=== PATIENT | female | born 1960 | race African-American/Black ===

== ENCOUNTER 2022-03-22 18:53 | Inpatient (IN) | payer MEDICAID ==
[~2022-03-22] VITALS: Ht 170.2 cm; Wt 87.6 kg
[2022-03-22] MEDS ORDERED: SODIUM CHLORIDE 0.9% 2,500 ML IV ONE (19:45)
[2022-03-22 19:55] LABS: Albumin 2.6 g/dL (3.4-5.0); Calcium 9.7 mg/dL (8.5-10.1); Hematocrit 43.5 % (36.0-46.0); Hemoglobin 12.6 g/dL (12.2-16.2); Mean Corpuscular Hemoglobin 32.9 pg (28.0-32.0); Mean Corpuscular Hgb Conc. 28.9 g/dL (32.0-36.0); Mean Corpuscular Volume 113.9 fL (80.0-100.0); Potassium 3.6 mmol/L (3.5-5.1); Red Blood Cells 3.82 10^6/uL (4.0-5.20); Red Cell Distribution Width 19.8 % (11.8-14.3); White Blood Cell 22.4 10^3/uL (4.4-10.8)
[2022-03-22 19:58] LABS: BUN/Creatinine Ratio 2.5; Band Neutrophils % (manual) 0; Basophils % (manual) 0 (0.0-2.0); Bilirubin, Total 2.6 mg/dL (0.2-1.0); Blast Cells 0; Eosinophils % (manual) 0 (0-7); Metamyelocytes % 0; Myelocytes % 0; Promyelocytes % 0; Reactive Lymphocytes 0; Total Protein 8.7 g/dL (6.4-8.2)
[2022-03-22] MEDS: PIPERACILLIN-TAZO 4.5GM 100 ML IV SCH (20:40)
[2022-03-22 20:51] LABS: Urine Bacteria NONE SEEN /hpf (None Seen); Urine Blood 1+ /uL (Negative); Urine Hyaline Cast FEW /lpf (0 - 2); Urine Mucus FEW (None Seen); Urine Specific Gravity 1.014 (1.001-1.035); Urine WBC 1 /hpf (0 - 5)
[2022-03-22 21:05] LABS: Lactic Acid w/Reflex 26.7 mmol/L (0.4-2.0)
[2022-03-22] MEDS ORDERED: DEXTROSE 50% SYRINGE 50 ML IV ONE (21:10)
[2022-03-22 21:17] LABS: Lymphocytes % (manual) 10 (10.0-50.0); Monocytes % (manual) 6 (0-12)
[2022-03-22] MEDS ORDERED: IOHEXOL 300 MG/ML 100ML BOTTLE IJ ONE (21:18)
[2022-03-22] MEDS ORDERED: ONDANSETRON HCL 4 MG/2 ML VIAL IV ONE (21:30)
[2022-03-22] MEDS ORDERED: DEXTROSE (50%) 50ML SYRG IV ONE (21:30)
[2022-03-22] MEDS ORDERED: D5W/LACTATED RINGERS 1,000 ML IV ONE (21:30)
[2022-03-22] MEDS ORDERED: VANCOMYCIN 1GM/250ML 250 ML IV SCH (22:00)
[2022-03-22] MEDS ORDERED: METOCLOPRAMIDE HCL 5MG/ml INJ 2ml VIAL IV ONE (23:00)
[2022-03-22 23:18] LABS: Lactic Acid w/Reflex 22.5 mmol/L (0.4-2.0)
[2022-03-22] MEDS ORDERED: DEXTROSE (50%) 50ML SYRG IV PRN (23:45)
[2022-03-22] MEDS ORDERED: INSULIN LANTUS (GLARGINE) 1 /0.01ml (100units/ml) SC ONE (23:45)
[2022-03-22] MEDS ORDERED: SODIUM CHLORIDE 0.9% 1,000 ML IV ONE (23:45)
[2022-03-22] MEDS ORDERED: InsuLIN R (HUMAN) 100 UNITS in SODIUM CHL 0.9% 99 ML IV SCH (23:45)
[2022-03-23] VITALS (32 sets, daily range): BP systolic 120–157; BP diastolic 63–86
[2022-03-23] MEDS ORDERED: ACCU-CHEK COMFORT CURVE STRIP VI SCH
[2022-03-23 00:18] LABS: Albumin 2.1 g/dL (3.4-5.0); Calcium 8.1 mg/dL (8.5-10.1); Potassium 3.4 mmol/L (3.5-5.1)
[2022-03-23 00:20] LABS: Total Protein 6.5 g/dL (6.4-8.2)
[2022-03-23 00:27] LABS: Bilirubin, Total 2.5 mg/dL (0.2-1.0)
[2022-03-23 00:40] LABS: BUN/Creatinine Ratio 2.5
[2022-03-23] MEDS ORDERED: DEXTROSE (50%) 50ML SYRG IV PRN (01:00)
[2022-03-23] MEDS ORDERED: MORPHINE SULFATE INJ 2 MG/ml SYRG IV PRN (01:00)
[2022-03-23] MEDS ORDERED: SODIUM BICARBONATE 50ML VIAL 100 ML in SOD CHL 0.45% 1,000 ML IV SCH (01:00)
[2022-03-23] MEDS ORDERED: VANCOMYCIN PER PHARMACY 0 MG IV SCH (01:00)
[2022-03-23] MEDS ORDERED: SODIUM BICARBONATE 50ML VIAL 150 ML in D5W 5% 1,000 ML IV SCH ×2 (01:00→10:30)
[2022-03-23] MEDS ORDERED: InsuLIN R (HUMAN) 100 UNITS in SODIUM CHL 0.9% 99 ML IV SCH ×2 (01:00→06:45)
[2022-03-23] MEDS ORDERED: SODIUM BICARBONATE 8.4 % INJ 50ML VIAL IV ONE ×2 (01:15→02:52)
[2022-03-23 01:50] LABS: Hemoglobin 10.6 g/dL (12.2-16.2)
[2022-03-23 01:52] LABS: Hematocrit 34.4 % (36.0-46.0); Mean Corpuscular Hemoglobin 33.8 pg (28.0-32.0); Mean Corpuscular Hgb Conc. 30.8 g/dL (32.0-36.0); Mean Corpuscular Volume 109.9 fL (80.0-100.0); Red Blood Cells 3.13 10^6/uL (4.0-5.20); Red Cell Distribution Width 19.6 % (11.8-14.3); White Blood Cell 25.3 10^3/uL (4.4-10.8)
[2022-03-23 01:59] LABS: Basophils % (manual) 0 (0.0-2.0); Blast Cells 0; Eosinophils % (manual) 0 (0-7); Metamyelocytes % 0; Myelocytes % 0; Promyelocytes % 0; Reactive Lymphocytes 0
[2022-03-23 02:11] LABS: Albumin 2.3 g/dL (3.4-5.0); BUN/Creatinine Ratio 3.3; Calcium 8.5 mg/dL (8.5-10.1); Magnesium 1.8 mg/dL (1.6-2.6); Potassium 3.4 mmol/L (3.5-5.1)
[2022-03-23 02:14] LABS: Bilirubin, Total 2.6 mg/dL (0.2-1.0); Phosphorus 4.7 mg/dL (2.5-4.90)
[2022-03-23 02:16] LABS: Anion Gap 32 (5-15); BUN/Creatinine Ratio 2.4; Blood Urea Nitrogen 3 mg/dL (7-18); Calcium 8.6 mg/dL (8.5-10.1); Chloride 111 mmol/L (98-107); GFR African American 55 mL/min; GFR Non-African American 46 mL/min; Glucose 221 mg/dL (74-106); Potassium 3.8 mmol/L (3.5-5.1); Sodium 145 mmol/L (136-145)
[2022-03-23 02:19] LABS: Carbon Dioxide 2 mmol/L (21-32)
[2022-03-23] MEDS: ACCU-CHEK COMFORT CURVE STRIP VI SCH ×11 (02:20→18:03)
[2022-03-23 02:28] LABS: Band Neutrophils % (manual) 9; Lymphocytes % (manual) 11 (10.0-50.0); Monocytes % (manual) 4 (0-12)
[2022-03-23] MEDS: POTASSIUM CHL 20MEQ/100ML 100 ML IV SCH ×2 (02:28→04:31)
[2022-03-23] MEDS: PIPERACILLIN-TAZOB 3.375GM 100 ML IV SCH ×3 (02:35→18:15)
[2022-03-23] MEDS ORDERED: InsuLIN REG 1unit/0.01ml Soln (100units/ml) ONE (03:04)
[2022-03-23] MEDS: PIPERACILLIN-TAZO 4.5GM 100 ML IV SCH ×3 (04:08→04:31)
[2022-03-23] MEDS: ONDANSETRON HCL 4 MG/2 ML VIAL IV PRN ×3 (04:41→21:31)
[2022-03-23] MEDS ORDERED: SODIUM CHLORIDE 0.9% 1,000 ML IV ONE (06:00)
[2022-03-23 06:33] LABS: Albumin 2.1 g/dL (3.4-5.0); Calcium 7.7 mg/dL (8.5-10.1); Magnesium 1.5 mg/dL (1.6-2.6); Potassium 4.3 mmol/L (3.5-5.1)
[2022-03-23 06:36] LABS: BUN/Creatinine Ratio 2.2; Bilirubin, Total 2.7 mg/dL (0.2-1.0); Phosphorus 1.5 mg/dL (2.5-4.90); Total Protein 6.6 g/dL (6.4-8.2)
[2022-03-23 06:58] LABS: Eosinophils # (auto) 0 10 ^3/uL (0-0.8)
[2022-03-23 07:00] LABS: Basophils # (auto) 0 10 ^3/uL (0-0.2); Basophils % (auto) 0.1 % (0.0-2.0); Eosinophils % (auto) 0.1 % (0.0-7.0); Hematocrit 31.1 % (36.0-46.0); Lymphocytes # (auto) 2.6 10 ^3/uL (0.4-5.4); Lymphocytes % (auto) 12.2 % (10.0-50.0); Mean Corpuscular Hemoglobin 33.5 pg (28.0-32.0); Mean Corpuscular Volume 104.8 fL (80.0-100.0); Monocytes # (auto) 1.1 10 ^3/uL (0-1.3); Monocytes % (auto) 5.3 % (0.0-12.0); Neutrophils # (auto) 17.4 10 ^3/uL (1.6-8.6); Neutrophils % (auto) 82.3 % (37.0-80.0); Red Blood Cells 2.97 10^6/uL (4.0-5.20); Red Cell Distribution Width 18.6 % (11.8-14.3); White Blood Cell 21.2 10^3/uL (4.4-10.8)
[2022-03-23] MEDS ORDERED: D5W/SOD CHL 0.45% 1,000 ML IV SCH (07:45)
[2022-03-23] MEDS ORDERED: chlordiazePOXIDE HCL 25 MG CAP PO PRN (08:15)
[2022-03-23] MEDS ORDERED: LORazepam 2MG/ML-1ML VIAL IV PRN (08:15)
[2022-03-23] MEDS ORDERED: INSULIN LANTUS (GLARGINE) 1 /0.01ml (100units/ml) SC SCH (10:00)
[2022-03-23 10:12] LABS: Calcium 8.2 mg/dL (8.5-10.1); Magnesium 1.7 mg/dL (1.6-2.6); Potassium 3.7 mmol/L (3.5-5.1)
[2022-03-23 10:15] LABS: BUN/Creatinine Ratio 2.2; Bilirubin, Total 2.8 mg/dL (0.2-1.0); Total Protein 6.8 g/dL (6.4-8.2)
[2022-03-23] MEDS ORDERED: POTASSIUM PHOSPHATE 26.4 MEQ in SODIUM CHL 0.9% 100 ML IV ONE (10:30)
[2022-03-23 10:59] LABS: Phosphorus 0.7 mg/dL (2.5-4.90)
[2022-03-23] MEDS ORDERED: SODIUM PHOSPHATES 40 MEQ in D5W 5% 250 ML IV ONE (11:00)
[2022-03-23] MEDS ORDERED: D5W 5% IV SCH ×2 (12:15→12:30)
[2022-03-23] MEDS ORDERED: SODIUM BICARBONATE IV SCH ×2 (12:15→12:30)
[2022-03-23] MEDS ORDERED: POTASSIUM CHLORIDE IV SCH ×2 (12:15→12:30)
[2022-03-23] MEDS ORDERED: POTASSIUM PHOSPHATE 44 MEQ in D5W 5% 250 ML IV ONE (12:30)
[2022-03-23] MEDS: FOLIC ACID 1 MG, MULTIPLE VITAMIN 10 ML, MAGNESIUM SULF SDV 50% 8 MEQ, THIAMINE INJ 100... INJ SCH ×5 (12:35)
[2022-03-23] MEDS: SODIUM BICARBONATE 50ML VIAL 150 ML in D5W 5% 1,000 ML IV SCH ×2 (13:18→21:57)
[2022-03-23] MEDS: MAGNESIUM SULFATE 1GM/100ML 100 ML IV SCH ×2 (13:32→15:11)
[2022-03-23 14:51] LABS: Albumin 2.1 g/dL (3.4-5.0); Calcium 8.1 mg/dL (8.5-10.1); Magnesium 1.8 mg/dL (1.6-2.6); Potassium 3.4 mmol/L (3.5-5.1)
[2022-03-23 14:54] LABS: BUN/Creatinine Ratio 2.5; Bilirubin, Total 2.9 mg/dL (0.2-1.0); Total Protein 6.9 g/dL (6.4-8.2)
[2022-03-23] MEDS: VANCOMYCIN 1GM/250ML 250 ML IV SCH (15:09)
[2022-03-23 15:10] LABS: Phosphorus 0.6 mg/dL (2.5-4.90)
[2022-03-23 18:19] LABS: Albumin 2.2 g/dL (3.4-5.0); BUN/Creatinine Ratio 2.8; Magnesium 2.6 mg/dL (1.6-2.6); Potassium 3.2 mmol/L (3.5-5.1)
[2022-03-23 18:22] LABS: Bilirubin, Total 3.1 mg/dL (0.2-1.0); Total Protein 6.9 g/dL (6.4-8.2)
[2022-03-23 18:29] LABS: Phosphorus 0.6 mg/dL (2.5-4.90)
[2022-03-23] MEDS: HYDROmorphone HCL 2 MG/ML VL/or syr IV PRN (21:32)
[2022-03-23] MEDS: PANTOPRAZOLE 40 MG/10 ML VIAL INJ IV SCH (21:33)
[2022-03-23] MEDS: SODIUM BICARBONATE IV SCH (22:40)
[2022-03-23] MEDS: POTASSIUM CHLORIDE IV SCH (22:40)
[2022-03-23] MEDS: D5W 5% IV SCH (22:40)
[2022-03-24] VITALS (22 sets, daily range): BP systolic 115–141; BP diastolic 62–94
[2022-03-24 01:20] LABS: Albumin 2.1 g/dL (3.4-5.0); BUN/Creatinine Ratio 3.8; Calcium 7.8 mg/dL (8.5-10.1); Magnesium 2.4 mg/dL (1.6-2.6); Potassium 3.3 mmol/L (3.5-5.1)
[2022-03-24 01:23] LABS: Bilirubin, Total 3.2 mg/dL (0.2-1.0); Phosphorus 1.9 mg/dL (2.5-4.90); Total Protein 6.2 g/dL (6.4-8.2)
[2022-03-24] MEDS: PIPERACILLIN-TAZOB 3.375GM 100 ML IV SCH ×3 (02:00→17:47)
[2022-03-24 06:10] LABS: Albumin 2.1 g/dL (3.4-5.0); Calcium 7.7 mg/dL (8.5-10.1); Magnesium 2.3 mg/dL (1.6-2.6); Potassium 3.3 mmol/L (3.5-5.1)
[2022-03-24 06:13] LABS: BUN/Creatinine Ratio 4.8; Bilirubin, Total 3.4 mg/dL (0.2-1.0); Phosphorus 1.7 mg/dL (2.5-4.90); Total Protein 7.2 g/dL (6.4-8.2)
[2022-03-24] MEDS: D5W 5% IV SCH (06:24)
[2022-03-24] MEDS: SODIUM BICARBONATE IV SCH (06:24)
[2022-03-24] MEDS: POTASSIUM CHLORIDE IV SCH (06:24)
[2022-03-24] MEDS: ACCU-CHEK COMFORT CURVE STRIP VI SCH ×5 (06:27→23:39)
[2022-03-24] MEDS ORDERED: SODIUM PHOSPHATES 20 MEQ in SODIUM CHL 0.9% 100 ML IV ONE (08:30)
[2022-03-24] MEDS: PANTOPRAZOLE 40 MG/10 ML VIAL INJ IV SCH ×2 (10:00→21:53)
[2022-03-24 10:40] LABS: Calcium 7.9 mg/dL (8.5-10.1); Magnesium 2.5 mg/dL (1.6-2.6); Potassium 3.2 mmol/L (3.5-5.1)
[2022-03-24 10:43] LABS: Albumin 2.2 g/dL (3.4-5.0); BUN/Creatinine Ratio 3.8
[2022-03-24 10:45] LABS: Bilirubin, Total 3.7 mg/dL (0.2-1.0); Phosphorus 1.6 mg/dL (2.5-4.90); Total Protein 6.7 g/dL (6.4-8.2)
[2022-03-24] MEDS: SOD CHL 0.45% 1,000 ML IV SCH (11:15)
[2022-03-24] MEDS: FOLIC ACID 1 MG, MULTIPLE VITAMIN 10 ML, MAGNESIUM SULF SDV 50% 8 MEQ, THIAMINE INJ 100... INJ SCH ×5 (12:21)
[2022-03-24] MEDS: ONDANSETRON HCL 4 MG/2 ML VIAL IV PRN (12:43)
[2022-03-24] MEDS: HYDROmorphone HCL 2 MG/ML VL/or syr IV PRN ×3 (12:43→21:52)
[2022-03-24] MEDS: VANCOMYCIN 1GM/250ML 250 ML IV SCH (15:07)
[2022-03-24 16:48] LABS: Albumin 1.9 g/dL (3.4-5.0); Calcium 7.2 mg/dL (8.5-10.1); Magnesium 2.3 mg/dL (1.6-2.6)
[2022-03-24 16:51] LABS: BUN/Creatinine Ratio 3.9; Bilirubin, Total 3.3 mg/dL (0.2-1.0); Phosphorus 2.5 mg/dL (2.5-4.90); Total Protein 5.8 g/dL (6.4-8.2)
[2022-03-24 16:57] LABS: Potassium 2.8 mmol/L (3.5-5.1)
[2022-03-24] MEDS ORDERED: POTASSIUM CHL 20MEQ/100ML 100 ML IV ONE (17:35)
[2022-03-24] MEDS: POTASSIUM CHL 20MEQ/100ML 100 ML IV SCH ×2 (17:37→18:36)
[2022-03-25] VITALS (16 sets, daily range): BP systolic 105–152; BP diastolic 61–92
[2022-03-25] MEDS: PIPERACILLIN-TAZOB 3.375GM 100 ML IV SCH (02:45)
[2022-03-25] MEDS: ACCU-CHEK COMFORT CURVE STRIP VI SCH ×3 (06:01→18:51)
[2022-03-25] MEDS: SOD CHL 0.45% 1,000 ML IV SCH (07:15)
[2022-03-25 07:26] LABS: Basophils # (auto) 0 10 ^3/uL (0-0.2); Basophils % (auto) 0.4 % (0.0-2.0); Eosinophils # (auto) 0 10 ^3/uL (0-0.8); Hemoglobin 11.1 g/dL (12.2-16.2); Lymphocytes # (auto) 1.8 10 ^3/uL (0.4-5.4)
[2022-03-25 07:29] LABS: Eosinophils % (auto) 0.4 % (0.0-7.0); Lymphocytes % (auto) 27.2 % (10.0-50.0); Mean Corpuscular Hemoglobin 34.3 pg (28.0-32.0); Mean Corpuscular Hgb Conc. 33.5 g/dL (32.0-36.0); Mean Corpuscular Volume 102.2 fL (80.0-100.0); Monocytes # (auto) 0.5 10 ^3/uL (0-1.3); Monocytes % (auto) 8.1 % (0.0-12.0); Neutrophils # (auto) 4.3 10 ^3/uL (1.6-8.6); Neutrophils % (auto) 63.9 % (37.0-80.0); Nucleated Red Blood Cells % 0.3 %; Red Blood Cells 3.23 10^6/uL (4.0-5.20); Red Cell Distribution Width 17.9 % (11.8-14.3); White Blood Cell 6.7 10^3/uL (4.4-10.8)
[2022-03-25] MEDS: HYDROmorphone HCL 2 MG/ML VL/or syr IV PRN ×2 (09:56→17:56)
[2022-03-25 10:12] LABS: Albumin 2.1 g/dL (3.4-5.0); Calcium 7.6 mg/dL (8.5-10.1); Potassium 3.2 mmol/L (3.5-5.1)
[2022-03-25 10:15] LABS: BUN/Creatinine Ratio 4.2; Total Protein 6.2 g/dL (6.4-8.2)
[2022-03-25] MEDS ORDERED: POTASSIUM EFFERVESENT TAB 25 MEQ PO ONE (11:15)
[2022-03-25] MEDS: ONDANSETRON HCL 4 MG/2 ML VIAL IV PRN (12:52)
[2022-03-25] MEDS: FOLIC ACID 1 MG, MULTIPLE VITAMIN 10 ML, MAGNESIUM SULF SDV 50% 8 MEQ, THIAMINE INJ 100... INJ SCH ×5 (13:09)
[2022-03-25 23:25] LABS: Urine Bacteria NONE SEEN /hpf (None Seen); Urine Blood 3+ /uL (Negative); Urine Hyaline Cast FEW /lpf (0 - 2); Urine Mucus FEW (None Seen); Urine Specific Gravity 1.035 (1.001-1.035); Urine WBC 29 /hpf (0 - 5)
[2022-03-25 23:34] LABS: Alcohol, Urine < 3.0 mg/dL (0-10); Amphetamine Screen, Urine NEGATIVE (NEGATIVE); Barbiturate Scree,Urine NEGATIVE (NEGATIVE); Benzodiazephine Screen, Urine NEGATIVE (NEGATIVE); Cannabinoid Screen, Urine NEGATIVE (NEGATIVE); Cocaine Screen, Urine NEGATIVE (NEGATIVE); Opiate Scree,Urine POSITIVE (NEGATIVE); Phencyclidine Screen, Urine NEGATIVE (NEGATIVE)
[2022-03-25 23:38] LABS: Sodium Urine 67 mmol/L (40-220)
[2022-03-25 23:46] LABS: Creatinine, Urine 282 mg/dL (30.0-125.0)
[2022-03-26] VITALS (13 sets, daily range): BP systolic 112–139; BP diastolic 58–75
[2022-03-26] MEDS: SOD CHL 0.45% 1,000 ML IV SCH ×2 (05:00→23:15)
[2022-03-26 05:15] LABS: Basophils # (auto) 0 10 ^3/uL (0-0.2); Basophils % (auto) 0.4 % (0.0-2.0); Eosinophils % (auto) 0.9 % (0.0-7.0); Mean Corpuscular Volume 100.1 fL (80.0-100.0); Neutrophils # (auto) 2.7 10 ^3/uL (1.6-8.6); Red Cell Distribution Width 17.5 % (11.8-14.3); White Blood Cell 5.6 10^3/uL (4.4-10.8)
[2022-03-26 05:19] LABS: Eosinophils # (auto) 0.1 10 ^3/uL (0-0.8); Hemoglobin 8.9 g/dL (12.2-16.2); Lymphocytes # (auto) 2.2 10 ^3/uL (0.4-5.4); Lymphocytes % (auto) 40.4 % (10.0-50.0); Mean Corpuscular Hemoglobin 33.2 pg (28.0-32.0); Mean Corpuscular Hgb Conc. 33.2 g/dL (32.0-36.0); Monocytes # (auto) 0.6 10 ^3/uL (0-1.3); Neutrophils % (auto) 48.3 % (37.0-80.0); Nucleated Red Blood Cells % 0.3 %
[2022-03-26 05:28] LABS: Potassium 3.3 mmol/L (3.5-5.1)
[2022-03-26 05:37] LABS: Albumin 1.9 g/dL (3.4-5.0); BUN/Creatinine Ratio 6.3; Bilirubin, Total 3.8 mg/dL (0.2-1.0); Calcium 7.7 mg/dL (8.5-10.1); Magnesium 2.4 mg/dL (1.6-2.6); Phosphorus 1.7 mg/dL (2.5-4.90); Total Protein 5.9 g/dL (6.4-8.2)
[2022-03-26] MEDS: ACCU-CHEK COMFORT CURVE STRIP VI SCH ×4 (06:24→18:22)
[2022-03-26] MEDS ORDERED: POTASSIUM PHOSPHATE 22 MEQ in SODIUM CHL 0.9% 100 ML IV ONE (08:00)
[2022-03-26] MEDS: ONDANSETRON HCL 4 MG/2 ML VIAL IV PRN (08:25)
[2022-03-26] MEDS: PANTOPRAZOLE 40 MG TAB PO SCH (10:27)
[2022-03-26] MEDS: METOPROLOL TARTRATE 25 MG TAB PO SCH ×2 (10:44→22:30)
[2022-03-26] MEDS: FOLIC ACID 1 MG, MULTIPLE VITAMIN 10 ML, MAGNESIUM SULF SDV 50% 8 MEQ, THIAMINE INJ 100... INJ SCH ×5 (12:13)
[2022-03-26] MEDS: cefTRIAXone 1GM/50ML D5W 50 ML IV SCH (12:19)
[2022-03-27] MEDS: ACCU-CHEK COMFORT CURVE STRIP VI SCH ×5 (05:57→23:06)
[2022-03-27 08:00] VITALS: BP 127/74
[2022-03-27] MEDS: cefTRIAXone 1GM/50ML D5W 50 ML IV SCH (08:28)
[2022-03-27] MEDS: ONDANSETRON HCL 4 MG/2 ML VIAL IV PRN ×2 (08:29→22:13)
[2022-03-27] MEDS: METOPROLOL TARTRATE 25 MG TAB PO SCH ×2 (08:30→22:13)
[2022-03-27] MEDS: PANTOPRAZOLE 40 MG TAB PO SCH (08:55)
[2022-03-27 11:50] LABS: Basophils # (auto) 0.1 10 ^3/uL (0-0.2); Basophils % (auto) 1.3 % (0.0-2.0); Eosinophils # (auto) 0.1 10 ^3/uL (0-0.8); Eosinophils % (auto) 1.3 % (0.0-7.0); Lymphocytes # (auto) 1.7 10 ^3/uL (0.4-5.4)
[2022-03-27 11:53] LABS: Hematocrit 30.6 % (36.0-46.0); Hemoglobin 10.2 g/dL (12.2-16.2); Lymphocytes % (auto) 29.4 % (10.0-50.0); Mean Corpuscular Hemoglobin 33.7 pg (28.0-32.0); Mean Corpuscular Hgb Conc. 33.4 g/dL (32.0-36.0); Mean Corpuscular Volume 100.9 fL (80.0-100.0); Monocytes % (auto) 17.1 % (0.0-12.0); Neutrophils # (auto) 2.9 10 ^3/uL (1.6-8.6); Neutrophils % (auto) 50.9 % (37.0-80.0); Nucleated Red Blood Cells % 0.8 %; Red Blood Cells 3.04 10^6/uL (4.0-5.20); Red Cell Distribution Width 17.8 % (11.8-14.3); White Blood Cell 5.8 10^3/uL (4.4-10.8)
[2022-03-27 12:00] VITALS: BP 124/78
[2022-03-27 12:11] LABS: Calcium 8.4 mg/dL (8.5-10.1); Potassium 3.4 mmol/L (3.5-5.1)
[2022-03-27 12:14] LABS: BUN/Creatinine Ratio 4.8
[2022-03-27 12:42] LABS: Bilirubin, Total 3.4 mg/dL (0.2-1.0); Total Protein 6.1 g/dL (6.4-8.2)
[2022-03-27] MEDS: SOD CHL 0.45% 1,000 ML IV SCH (12:44)
[2022-03-27] MEDS: FOLIC ACID 1 MG, MULTIPLE VITAMIN 10 ML, MAGNESIUM SULF SDV 50% 8 MEQ, THIAMINE INJ 100... INJ SCH ×5 (14:17)
[2022-03-27 16:00] VITALS: BP 125/74
[2022-03-27 22:00] VITALS: BP 117/67
[2022-03-27] MEDS: HYDROmorphone HCL 2 MG/ML VL/or syr IV PRN (22:14)
[2022-03-28 04:41] VITALS: BP 116/69
[2022-03-28] MEDS: ACCU-CHEK COMFORT CURVE STRIP VI SCH ×4 (06:34→23:48)
[2022-03-28] MEDS: ONDANSETRON HCL 4 MG/2 ML VIAL IV PRN ×2 (08:02→21:55)
[2022-03-28 09:00] VITALS: BP 109/81
[2022-03-28] MEDS: cefTRIAXone 1GM/50ML D5W 50 ML IV SCH (10:43)
[2022-03-28] MEDS: PANTOPRAZOLE 40 MG TAB PO SCH (10:46)
[2022-03-28] MEDS: METOPROLOL TARTRATE 25 MG TAB PO SCH ×2 (10:46→21:54)
[2022-03-28 13:00] VITALS: BP 119/67
[2022-03-28] MEDS: FOLIC ACID 1 MG, MULTIPLE VITAMIN 10 ML, MAGNESIUM SULF SDV 50% 8 MEQ, THIAMINE INJ 100... INJ SCH ×5 (13:59)
[2022-03-28] MEDS: SOD CHL 0.45% 1,000 ML IV SCH ×2 (16:41→19:42)
[2022-03-28 17:00] VITALS: BP 118/51
[2022-03-28 17:50] LABS: Hematocrit 32.2 % (36.0-46.0); Hemoglobin 10.5 g/dL (12.2-16.2); Mean Corpuscular Hgb Conc. 32.5 g/dL (32.0-36.0); Mean Corpuscular Volume 101.4 fL (80.0-100.0); Red Blood Cells 3.17 10^6/uL (4.0-5.20); Red Cell Distribution Width 18.3 % (11.8-14.3); White Blood Cell 5.1 10^3/uL (4.4-10.8)
[2022-03-28 17:52] LABS: Band Neutrophils % (manual) 0; Basophils % (manual) 0 (0.0-2.0); Blast Cells 0; Metamyelocytes % 0; Myelocytes % 0; Promyelocytes % 0; Reactive Lymphocytes 0
[2022-03-28 18:08] LABS: Albumin 1.8 g/dL (3.4-5.0); Calcium 8.1 mg/dL (8.5-10.1); Magnesium 2.2 mg/dL (1.6-2.6)
[2022-03-28 18:20] LABS: Eosinophils % (manual) 3 (0-7); Lymphocytes % (manual) 25 (10.0-50.0); Monocytes % (manual) 15 (0-12)
[2022-03-28 18:58] LABS: Bilirubin, Total 3.4 mg/dL (0.2-1.0); Phosphorus 2.3 mg/dL (2.5-4.90); Total Protein 6.2 g/dL (6.4-8.2)
[2022-03-28 19:03] LABS: Potassium 3.2 mmol/L (3.5-5.1)
[2022-03-28 22:20] VITALS: BP 137/73
[2022-03-29 05:07] VITALS: BP 119/57
[2022-03-29] MEDS: HYDROmorphone HCL 2 MG/ML VL/or syr IV PRN (05:18)
[2022-03-29] MEDS: ACCU-CHEK COMFORT CURVE STRIP VI SCH ×3 (05:30→18:04)
[2022-03-29] MEDS: cefTRIAXone 1GM/50ML D5W 50 ML IV SCH ×2 (08:56→09:31)
[2022-03-29 09:00] VITALS: BP 127/79
[2022-03-29] MEDS: PANTOPRAZOLE 40 MG TAB PO SCH (09:29)
[2022-03-29] MEDS: METOPROLOL TARTRATE 25 MG TAB PO SCH ×2 (09:30→22:02)
[2022-03-29 13:00] VITALS: BP 102/56
[2022-03-29] MEDS: FOLIC ACID 1 MG, MULTIPLE VITAMIN 10 ML, MAGNESIUM SULF SDV 50% 8 MEQ, THIAMINE INJ 100... INJ SCH ×5 (14:10)
[2022-03-29 17:17] VITALS: BP 129/91
[2022-03-29 22:00] VITALS: BP 111/57
[2022-03-29] MEDS: ONDANSETRON HCL 4 MG/2 ML VIAL IV PRN (22:17)
[2022-03-30] MEDS: ACCU-CHEK COMFORT CURVE STRIP VI SCH ×2 (00:30→06:00)
[2022-03-30 05:00] VITALS: BP 108/44
[2022-03-30] MEDS: SOD CHL 0.45% 1,000 ML IV SCH (07:15)
[2022-03-30 09:00] VITALS: BP 106/66
[2022-03-30 09:47] VITALS: BP 117/70
[2022-03-30] MEDS: ONDANSETRON HCL 4 MG/2 ML VIAL IV PRN (09:50)
== END 2022-03-30 09:50 | disposition short-term general hospital (02) | DRG 720 ==
LOC: ER 18:53 → EDUNIT# 18:53 → EDBD 18:53 → TELE 03-23 00:50 → ICU WEST 03-23 09:03 → DOU IN ICU 03-24 09:12 → TELE-EAST 03-26 14:31
PROVIDERS: ADMIT Nurse Practitioner Family; ATTEND Internal Medicine
DX: A41.9 Sepsis, unspecified organism (principal); G93.41 Metabolic encephalopathy; N17.9 Acute kidney failure, unspecified; E11.10 Type 2 diabetes mellitus with ketoacidosis without coma; D69.6 Thrombocytopenia, unspecified; E83.39 Other disorders of phosphorus metabolism; E87.0 Hyperosmolality and hypernatremia; E88.09 Other disorders of plasma-protein metabolism, not elsewhere classified; K83.8 Other specified diseases of biliary tract; K76.0 Fatty (change of) liver, not elsewhere classified; Z20.822 Contact with and (suspected) exposure to COVID-19; G40.909 Epilepsy, unspecified, not intractable, without status epilepticus; I10 Essential (primary) hypertension; J98.11 Atelectasis; D50.0 Iron deficiency anemia secondary to blood loss (chronic); E87.6 Hypokalemia; N39.0 Urinary tract infection, site not specified
CPT/HCPCS: 36415; 36600; 71045; 74177; 74181; 76700; 80048; 80053; 80307; 80320; 81001; 82010; 82570; 82805; 82962; 83036; 83605; 83735; 83930; 84100; 84300; 84484; 85007; 85025; 85027; 85384; 86850; 86900; 86901; 87040; 87081; 87086; 87804; 93005; 93306; 95819; 96365; 96366; 96367; 96368; 96375; 99291; C9113; G0378; J0696; J1815; J2405; J2543; J3480; J7060